=== PATIENT | female | born 1995 | race Caucasian/White ===

== ENCOUNTER 2020-05-12 18:53 | Emergency (ER) | payer OTHER ==
[~2020-05-12] VITALS: Ht 167.6 cm; Wt 108.9 kg
[2020-05-12] MEDS ORDERED: WARFARIN SODIUM10 MG PO (19:07)
[2020-05-12] MEDS ORDERED: TOPROL XL25 MG PO (19:08)
[2020-05-12 19:56] LABS: ABSOLUTE NEUTROPHILS 4.1 thou/uL (1.4-8.2); BASOPHILS 1.2 % (0.0-2.0); EOSINOPHILS 11.3 % (0.0-3.0); HEMATOCRIT 29.9 % (37.0-47.0); HEMOGLOBIN 9.4 gm/dL (12.0-15.0); LYMPHOCYTES 32.4 % (24.0-44.0); MCH 22.4 pg (26.0-34.0); MCHC 31.3 g/dL (28.0-37.0); MCV 71.4 fL (80.0-100.0); MONOCYTES 4.8 % (1.0-8.0); PLATELET COUNT 355 thou/uL (150-400); POLYS 50.3 % (36.0-66.0); RBC 4.19 mil/uL (4.20-5.00); RDW 18.5 % (10.5-14.5); WBC 8.2 thou/uL (4.0-11.0)
[2020-05-12 20:02] LABS: CALCIUM 8.2 mg/dL (8.5-10.1); CREATININE 1.1 mg/dL (0.6-1.0); POTASSIUM 4.3 mmol/L (3.5-5.1)
[2020-05-12 20:08] LABS: ALBUMIN 3.4 g/dL (3.4-5.0); TOTAL BILIRUBIN 0.1 mg/dL (0.2-1.0); TOTAL PROTEIN 6.9 g/dL (6.4-8.2)
[2020-05-12 20:09] LABS: INR 3.8; PROTIME 38.8 Seconds (9.3-11.4)
[2020-05-12 20:54] LABS: AMP/METHAMP Negative (Negative); BARBITURATES Negative (Negative); BENZODIAZEPINES POSITIVE (Negative); COCAINE Negative (Negative); METHADONE Negative (Negative); OPIATES Negative (Negative); PCP Negative (Negative)
[2020-05-12] MEDS ORDERED: CYCLOBENZAPRINE5 MG PO (21:13)
[2020-05-12] MEDS ORDERED: HYDROCODON-ACE1 EAC7 PO (21:13)
[2020-05-12 21:31] VITALS: BP 134/89
== END 2020-05-12 21:32 | disposition home or self-care (01) ==
LOC: ER 18:53
PROVIDERS: Physician Assistant
DX: S06.0X0A Concussion without loss of consciousness, initial encounter (principal); S80.02XA Contusion of left knee, initial encounter; S80.01XA Contusion of right knee, initial encounter; I10 Essential (primary) hypertension; Z79.01 Long term (current) use of anticoagulants; Z79.899 Other long term (current) drug therapy; V49.49XA Driver injured in collision with other motor vehicles in traffic accident, initial encounter; Y93.89 Activity, other specified; Y92.89 Other specified places as the place of occurrence of the external cause; Y99.8 Other external cause status